=== PATIENT | female | born 1950 | race Two or more races ===

== ENCOUNTER 2020-06-26 10:19 | Outpatient (CLI) | payer OTHER | END 2020-06-26 10:23 | disposition home or self-care (01) | LOC: RAD 10:19 | PROVIDERS: ATTEND Internal Medicine Cardiovascular Disease | DX: M12.9 Arthropathy, unspecified (principal) ==

== ENCOUNTER → 2020-11-18 07:28 | Outpatient (CLI) | payer OTHER | END | disposition home or self-care (01) | LOC: LAB 07:28 | PROVIDERS: ATTEND Internal Medicine Endocrinology, Diabetes & Metabolism | DX: D64.89 Other specified anemias (principal); D51.8 Other vitamin B12 deficiency anemias; E03.8 Other specified hypothyroidism; E11.65 Type 2 diabetes mellitus with hyperglycemia ==

== ENCOUNTER 2021-01-16 08:35 | Outpatient (CLI) | payer OTHER ==
[~2021-01-16 08:35] MED LIST: ATORVAST PO; DILATIAZEM PO; DILTIAZEM ER180 M3; DIPHENOXYLATE-1 EACH PO; ENALAPRIL MALE2.5 MG; GABAPENT PO; GLIMEPIRIDE2 MG; HUMALO; INTESTINEX680 M1 PO; JANUVIA25 MG; LANTUS SOL100 UNIT/1; LEVSIN/SL0.125 MG SL; METFORMIN HCL1000 M2; NEURONTIN300 MG; NEURONTIN600 M1; PAXIL20 MG; PAXIL20 MG PO; PEPCID AC20 MG PO; TOPROL XL100 M1; [UNRECOGNIZED DRUG - OTHER]
== END 2021-01-16 08:42 | disposition home or self-care (01) ==
LOC: MAMO-SONO 08:35
PROVIDERS: ATTEND Obstetrics & Gynecology
DX: R92.0 Mammographic microcalcification found on diagnostic imaging of breast (principal); N60.11 Diffuse cystic mastopathy of right breast; N60.12 Diffuse cystic mastopathy of left breast; Z12.31 Encounter for screening mammogram for malignant neoplasm of breast

== ENCOUNTER 2021-01-20 14:18 | Outpatient (CLI) | payer OTHER | END 2021-01-20 14:31 | disposition home or self-care (01) | LOC: MAMO-SONO 14:18 | PROVIDERS: ATTEND Obstetrics & Gynecology | DX: R92.8 Other abnormal and inconclusive findings on diagnostic imaging of breast (principal); N64.89 Other specified disorders of breast ==

== ENCOUNTER 2021-01-27 07:00 | Outpatient (CLI) | payer OTHER | END 2021-01-27 08:00 | disposition home or self-care (01) | LOC: PPH VACUNA 07:00 | PROVIDERS: ATTEND Emergency Medicine Pediatric Emergency Medicine | DX: Z23 Encounter for immunization (principal) ==

== ENCOUNTER 2021-04-13 12:40 | Emergency (ER) | payer OTHER ==
[~2021-04-13] VITALS: Ht 160 cm; Wt 85.7 kg
[2021-04-13] MEDS ORDERED: HUMALOG100 UNIT/2 SQ (12:50)
[2021-04-13] MEDS ORDERED: LIPITOR20 MG PO (12:50)
[2021-04-13] MEDS ORDERED: DILTIAZEM 24HR180 MG PO (12:51)
== END 2021-04-13 16:24 | disposition home or self-care (01) ==
LOC: ER 12:40
DX: J06.9 Acute upper respiratory infection, unspecified (principal); Z11.52 Encounter for screening for COVID-19

== ENCOUNTER 2021-06-19 08:05 | Outpatient (CLI) | payer OTHER ==
[~2021-06-19 08:05] MED LIST changes: +DILTIAZEM 24HR180 MG PO; +HUMALOG100 UNIT/2 SQ; +LIPITOR20 MG PO
== END 2021-06-19 08:20 | disposition home or self-care (01) ==
LOC: TOM 08:05
PROVIDERS: ATTEND Internal Medicine Pulmonary Disease
DX: R91.1 Solitary pulmonary nodule (principal); Z87.891 Personal history of nicotine dependence

== ENCOUNTER 2021-09-19 12:00 | Outpatient (CLI) | payer OTHER | END 2021-09-19 12:30 | disposition home or self-care (01) | LOC: PPH VACUNA 12:00 | PROVIDERS: ATTEND Emergency Medicine Pediatric Emergency Medicine | DX: Z23 Encounter for immunization (principal) ==

== ENCOUNTER 2021-10-01 09:44 | Outpatient (CLI) | payer OTHER | END 2021-10-01 09:49 | disposition home or self-care (01) | LOC: RAD 09:44 | PROVIDERS: ATTEND Internal Medicine Cardiovascular Disease | DX: J44.9 Chronic obstructive pulmonary disease, unspecified (principal); I10 Essential (primary) hypertension ==

== ENCOUNTER 2021-11-03 12:14 | Emergency (ER) | payer OTHER ==
[~2021-11-03] VITALS: Ht 160 cm; Wt 84.8 kg
[2021-11-03] MEDS ORDERED: NORFLEX100MG PO (15:41)
== END 2021-11-03 16:29 | disposition home or self-care (01) ==
LOC: ER 12:14
DX: M54.50 Low back pain, unspecified (principal); E11.9 Type 2 diabetes mellitus without complications; Z79.4 Long term (current) use of insulin; I10 Essential (primary) hypertension; Z88.0 Allergy status to penicillin; Z88.2 Allergy status to sulfonamides; Z88.6 Allergy status to analgesic agent; M79.604 Pain in right leg; Z96.698 Presence of other orthopedic joint implants; Z96.653 Presence of artificial knee joint, bilateral

== ENCOUNTER 2022-01-22 08:48 | Outpatient (CLI) | payer OTHER ==
[~2022-01-22 08:48] MED LIST changes: +NORFLEX100MG PO
== END 2022-01-22 08:57 | disposition home or self-care (01) ==
LOC: RAD 08:48
PROVIDERS: ATTEND Obstetrics & Gynecology
DX: N60.11 Diffuse cystic mastopathy of right breast (principal); N60.12 Diffuse cystic mastopathy of left breast; Z12.31 Encounter for screening mammogram for malignant neoplasm of breast; M17.12 Unilateral primary osteoarthritis, left knee; M17.11 Unilateral primary osteoarthritis, right knee; M48.062 Spinal stenosis, lumbar region with neurogenic claudication

== ENCOUNTER 2022-01-22 09:39 | Outpatient (CLI) | payer OTHER | END 2022-01-22 09:44 | disposition home or self-care (01) | LOC: NUCLEAR 09:39 | PROVIDERS: ATTEND Obstetrics & Gynecology | DX: M81.0 Age-related osteoporosis without current pathological fracture (principal); Z88.0 Allergy status to penicillin; Z88.2 Allergy status to sulfonamides; Z88.5 Allergy status to narcotic agent; Z88.6 Allergy status to analgesic agent ==

== ENCOUNTER 2022-02-11 10:36 | Outpatient (CLI) | payer OTHER | END 2022-02-11 10:43 | disposition home or self-care (01) | LOC: SONOGRAMA 10:36 | DX: N20.0 Calculus of kidney (principal); N18.32 Chronic kidney disease, stage 3b ==

== ENCOUNTER 2022-07-17 10:35 | Emergency (ER) | payer OTHER ==
[~2022-07-17] VITALS: Ht 162.6 cm; Wt 81.6 kg
[2022-07-17] MEDS ORDERED: HUMALOG KW100 UNIT/1 SQ (10:54)
[2022-07-17] MEDS ORDERED: LOSARTAN POTAS100 MG PO (10:54)
[2022-07-17] MEDS ORDERED: ATORVASTATIN CA40 MG PO (10:54)
[2022-07-17] MEDS ORDERED: GABAPENTIN400 MG PO (10:54)
[2022-07-17] MEDS ORDERED: JARDIANCE10 MG PO (10:55)
[2022-07-17] MEDS ORDERED: VASOTEC20 MG PO (10:55)
[2022-07-17] MEDS ORDERED: TIZANIDINE HCL4 MG PO (10:55)
[2022-07-17] MEDS ORDERED: DILTIAZEM HCL30 MG PO (10:55)
[2022-07-17] MEDS ORDERED: CLEOCIN HCL300 MG PO (11:37)
== END 2022-07-17 12:58 | disposition home or self-care (01) ==
LOC: ER 10:35
DX: Q84.3 Anonychia (principal); E11.9 Type 2 diabetes mellitus without complications; Z79.4 Long term (current) use of insulin; I10 Essential (primary) hypertension; Z88.6 Allergy status to analgesic agent; Z88.0 Allergy status to penicillin; Z88.2 Allergy status to sulfonamides; Z88.8 Allergy status to other drugs, medicaments and biological substances

== ENCOUNTER 2022-07-23 15:24 | Emergency (ER) | payer OTHER ==
[~2022-07-23] VITALS: Ht 160 cm; Wt 81.6 kg
[~2022-07-23 15:24] MED LIST changes: +ATORVASTATIN CA40 MG PO; +CLEOCIN HCL300 MG PO; +DILTIAZEM HCL30 MG PO; +GABAPENTIN400 MG PO; +HUMALOG KW100 UNIT/1 SQ; +JARDIANCE10 MG PO; +LOSARTAN POTAS100 MG PO; +TIZANIDINE HCL4 MG PO; +VASOTEC20 MG PO
[2022-07-23] MEDS ORDERED: MYRBETRIQ50 MG PO (16:04)
== END 2022-07-23 19:57 | disposition home or self-care (01) ==
LOC: ER 15:24
DX: J06.9 Acute upper respiratory infection, unspecified (principal); Z88.6 Allergy status to analgesic agent; Z88.0 Allergy status to penicillin; Z88.2 Allergy status to sulfonamides; Z20.822 Contact with and (suspected) exposure to COVID-19

== ENCOUNTER 2022-08-27 11:05 | Outpatient (CLI) | payer OTHER ==
[~2022-08-27 11:05] MED LIST changes: +MYRBETRIQ50 MG PO
== END 2022-08-27 11:06 | disposition home or self-care (01) ==
LOC: RAD 11:05
DX: M17.0 Bilateral primary osteoarthritis of knee (principal); M46.47 Discitis, unspecified, lumbosacral region

== ENCOUNTER → 2022-09-28 | Emergency (ER) | payer OTHER ==
[~2022-09-28] VITALS: Ht 160 cm; Wt 86.6 kg
[~2022-09-28] MED LIST changes: +HUMALOG100 UNIT/1; +LANTUS SOL100 UNIT/1 SQ
== END | disposition home or self-care (01) ==
LOC: ER 08:39
DX: R19.7 Diarrhea, unspecified (principal); E11.9 Type 2 diabetes mellitus without complications; Z79.4 Long term (current) use of insulin; I10 Essential (primary) hypertension; Z88.6 Allergy status to analgesic agent; Z88.0 Allergy status to penicillin; Z88.2 Allergy status to sulfonamides; Z88.8 Allergy status to other drugs, medicaments and biological substances

== ENCOUNTER 2022-10-20 08:27 | Outpatient (CLI) | payer OTHER | END 2022-10-20 08:37 | disposition home or self-care (01) | LOC: MRI 08:27 | PROVIDERS: ATTEND Internal Medicine Cardiovascular Disease | DX: M46.48 Discitis, unspecified, sacral and sacrococcygeal region (principal) | CPT/HCPCS: 72148 ==

== ENCOUNTER → 2022-10-21 | Outpatient (CLI) | payer OTHER | END | disposition home or self-care (01) | LOC: TOM 11:44 | PROVIDERS: ATTEND Internal Medicine Pulmonary Disease | DX: R91.1 Solitary pulmonary nodule (principal); Z87.891 Personal history of nicotine dependence ==

== ENCOUNTER 2022-12-22 13:24 | Outpatient (CLI) | payer OTHER | END 2022-12-22 13:26 | disposition home or self-care (01) | LOC: RAD 13:24 | PROVIDERS: ATTEND Internal Medicine Cardiovascular Disease | DX: M12.9 Arthropathy, unspecified (principal); M46.47 Discitis, unspecified, lumbosacral region ==

== ENCOUNTER 2023-02-10 09:55 | Outpatient (CLI) | payer OTHER | END 2023-02-10 10:01 | disposition home or self-care (01) | LOC: TOM 09:55 | PROVIDERS: ATTEND Internal Medicine Cardiovascular Disease | DX: R51.0 Headache with orthostatic component, not elsewhere classified (principal); Z88.0 Allergy status to penicillin; Z88.2 Allergy status to sulfonamides; Z88.5 Allergy status to narcotic agent; Z88.6 Allergy status to analgesic agent ==

== ENCOUNTER 2023-06-21 08:25 | Outpatient (CLI) | payer OTHER | END 2023-06-21 08:33 | disposition home or self-care (01) | LOC: TOM 08:25 | PROVIDERS: ATTEND Internal Medicine Pulmonary Disease | DX: R91.1 Solitary pulmonary nodule (principal); Z87.891 Personal history of nicotine dependence ==

== ENCOUNTER 2023-07-12 09:02 | Outpatient (CLI) | payer OTHER | END 2023-07-12 09:08 | disposition home or self-care (01) | LOC: RAD 09:02 | PROVIDERS: ATTEND Internal Medicine Cardiovascular Disease | DX: M12.9 Arthropathy, unspecified (principal); M46.47 Discitis, unspecified, lumbosacral region ==

== ENCOUNTER 2023-07-21 05:44 | Emergency (ER) | payer OTHER ==
[~2023-07-21] VITALS: Ht 160 cm; Wt 85.7 kg
[2023-07-21] MEDS ORDERED: METHYLPREDNISOLONE SOD SUCC 125 MG VIAL IV STA (07:41)
[2023-07-21] MEDS ORDERED: GUAIFENESIN/DEXTROMETHORPHAN 100 MG/5 ML ML PO STA (07:44)
[2023-07-21] MEDS ORDERED: ACETAMINOPHEN 500 MG GEL..CAP PO STA (07:44)
[2023-07-21] MEDS ORDERED: ALBUTEROL SULFATE 3 ML/2.5 MG AMPUL.NEB IH SCH (07:45)
[2023-07-21] MEDS ORDERED: INSULIN REGULAR, HUMAN 1,000 UNIT/10 ML UNITS IV STA (08:22)
[2023-07-21 09:17] LABS: HEMOGLOBIN 13.7 g/dL (12.0-15.00); MEAN CELL VOLUME 93.8 fL (80.00-100.00); MEAN CORPUSCULAR HEMOGLOBIN 32.2 pg (27.00-32.0); MEAN CORPUSCULAR HGB CONC 34.3 g/dl (32.0-36.0); PLATELET COUNT 265 K/uL (150-450); RED BLOOD COUNT 4.26 M/uL (4.00-6.00); RED CELL DISTRIBUTION WIDTH 13.3 % (11.5-14.5)
[2023-07-21 09:52] LABS: ALBUMIN 3.5 gm/dL (3.4-5.0); BILIRUBIN TOTAL 0.67 mg/dL (0.3-1.2); CALCIUM 9.7 mg/dL (8.5-10.1); CREATININE SERUM 1.68 mg/dL (0.55-1.02); GFR 29.87; GLOBULINA 3.9 G/DL (2.4-3.5); POTASSIUM 4.43 mEq/L (3.5-5.1); TOTAL PROTEIN 7.4 gm/dL (6.4-8.2)
[2023-07-21 11:54] LABS: ABG PH 7.364 (7.35-7.45); ABG PO2 90.1 mmHg (80-100); ABG pCO2 44.6 mmHg (35-45); BASE EXCESS -0.8 mmol/l; BICARBONATE 24.9 mmol/l (23-25); SaO2 96.5 %; Tco2 26.2 mmol/l
[2023-07-21 11:55] LABS: allen test SATISFACTORY; o2 21 %; puncture site RADIAL RIGHT
[2023-07-21] MEDS ORDERED: AZITHROMYCIN 500 MG TABLET PO STA (12:33)
[2023-07-21] MEDS ORDERED: AZITHROMYCIN 500 MG TABLET PO ONE (12:45)
== END 2023-07-21 14:42 | disposition home or self-care (01) ==
LOC: ER 05:45
PROVIDERS: General Practice
DX: E11.65 Type 2 diabetes mellitus with hyperglycemia (principal); I10 Essential (primary) hypertension; Z88.0 Allergy status to penicillin; Z88.8 Allergy status to other drugs, medicaments and biological substances; Z79.4 Long term (current) use of insulin

== ENCOUNTER 2023-12-02 09:01 | Outpatient (CLI) | payer OTHER ==
[2023-12-02] MEDS ORDERED: TRIJARDY XR 101 EACH (10:16)
[2023-12-02] MEDS ORDERED: MECLIZINE HCL25 MG PO (12:27)
== END 2023-12-02 09:14 | disposition home or self-care (01) ==
LOC: RAD 09:01
PROVIDERS: ATTEND Internal Medicine
DX: M17.11 Unilateral primary osteoarthritis, right knee (principal); M17.12 Unilateral primary osteoarthritis, left knee

== ENCOUNTER 2023-12-02 10:12 | Emergency (ER) | payer OTHER ==
[~2023-12-02] VITALS: Ht 160 cm; Wt 77.6 kg
[2023-12-02] MEDS ORDERED: TRIJARDY XR 101 EACH (10:16)
[2023-12-02] MEDS ORDERED: MECLIZINE HCL 25 MG TABLET PO ONE (10:45)
[2023-12-02 10:56] LABS: HEMATOCRIT 38.8 % (36.0-45.00); HEMOGLOBIN 13.5 g/dL (12.0-15.00); MEAN CELL VOLUME 90.6 fL (80.00-100.00); MEAN CORPUSCULAR HEMOGLOBIN 31.6 pg (27.00-32.0); MEAN CORPUSCULAR HGB CONC 34.9 g/dl (32.0-36.0); PLATELET COUNT 307 K/uL (150-450); RED BLOOD COUNT 4.28 M/uL (4.00-6.00); RED CELL DISTRIBUTION WIDTH 13.6 % (11.5-14.5)
[2023-12-02 11:38] LABS: BILIRUBIN TOTAL 0.61 mg/dL (0.3-1.2); CALCIUM 10.6 mg/dL (8.5-10.1); CREATININE SERUM 1.96 mg/dL (0.55-1.02); GFR 24.93; GLOBULINA 3.5 G/DL (2.4-3.5); POTASSIUM 4.78 mEq/L (3.5-5.1); TOTAL PROTEIN 7.5 gm/dL (6.4-8.2)
[2023-12-02] MEDS ORDERED: MECLIZINE HCL25 MG PO (12:27)
== END 2023-12-02 12:42 | disposition home or self-care (01) ==
LOC: ER 10:13
PROVIDERS: General Practice
DX: R42 Dizziness and giddiness (principal); Z20.822 Contact with and (suspected) exposure to COVID-19; I10 Essential (primary) hypertension; E11.9 Type 2 diabetes mellitus without complications; Z79.84 Long term (current) use of oral hypoglycemic drugs; Z88.0 Allergy status to penicillin; Z88.2 Allergy status to sulfonamides; Z88.5 Allergy status to narcotic agent; Z88.6 Allergy status to analgesic agent

== ENCOUNTER 2024-01-10 10:31 | Outpatient (CLI) | payer OTHER ==
[~2024-01-10 10:31] MED LIST changes: +MECLIZINE HCL25 MG PO; +TRIJARDY XR 101 EACH
== END 2024-01-10 10:38 | disposition home or self-care (01) ==
LOC: RAD 10:31
PROVIDERS: ATTEND Internal Medicine Cardiovascular Disease
DX: M12.9 Arthropathy, unspecified (principal)

== ENCOUNTER 2024-06-07 12:23 | Outpatient (CLI) | payer OTHER | END 2024-06-07 12:29 | disposition home or self-care (01) | LOC: RAD 12:23 | PROVIDERS: ATTEND Internal Medicine Cardiovascular Disease | DX: M12.9 Arthropathy, unspecified (principal) ==

== ENCOUNTER 2024-11-22 12:02 | Outpatient (CLI) | payer OTHER | END 2024-11-22 12:05 | disposition home or self-care (01) | LOC: RAD 12:02 | DX: M15.4 Erosive (osteo)arthritis (principal) ==

== ENCOUNTER 2025-01-08 13:10 | Outpatient (CLI) | payer OTHER | END 2025-01-08 13:14 | disposition home or self-care (01) | LOC: RAD 13:10 | PROVIDERS: ATTEND Internal Medicine Cardiovascular Disease | DX: M19.90 Unspecified osteoarthritis, unspecified site (principal) ==

== ENCOUNTER 2025-02-12 08:36 | Outpatient (CLI) | payer OTHER | END 2025-02-12 08:37 | disposition home or self-care (01) | LOC: TOM 08:36 | PROVIDERS: ATTEND Internal Medicine Cardiovascular Disease | DX: R51.9 Headache, unspecified (principal) ==

== ENCOUNTER 2025-02-15 10:25 | Outpatient (CLI) | payer OTHER | END 2025-02-15 10:28 | disposition home or self-care (01) | LOC: MAMO-SONO 10:25 | PROVIDERS: ATTEND Specialist | DX: N64.4 Mastodynia (principal); N95.1 Menopausal and female climacteric states ==